=== PATIENT | male | born 1985 | race Caucasian/White ===

== ENCOUNTER 2018-09-13 06:55 | Emergency (ER) | payer OTHER ==
[~2018-09-13] VITALS: Ht 226.1 cm; Wt 91.2 kg
== END 2018-09-13 17:12 | disposition home or self-care (01) ==
LOC: ER 06:55
DX: K52.9 Noninfective gastroenteritis and colitis, unspecified (principal); R53.81 Other malaise

== ENCOUNTER 2019-03-11 10:47 | Emergency (ER) | payer OTHER ==
[~2019-03-11] VITALS: Ht 190.5 cm; Wt 104.3 kg
[2019-03-11] MEDS ORDERED: ATIVAN0.5 M1 (11:12)
[2019-03-11] MEDS ORDERED: REMERON15 M1 (11:13)
== END 2019-03-11 18:49 | disposition home or self-care (01) ==
LOC: ER 10:47
DX: K29.60 Other gastritis without bleeding (principal); F10.20 Alcohol dependence, uncomplicated

== ENCOUNTER 2019-03-29 11:15 | Emergency (ER) | payer OTHER ==
[~2019-03-29] VITALS: Ht 190.5 cm; Wt 100.2 kg
[~2019-03-29 11:15] MED LIST: ATIVAN0.5 M1; REMERON15 M1
== END 2019-03-29 14:58 | disposition home or self-care (01) ==
LOC: ER 11:15
DX: S42.255A Nondisplaced fracture of greater tuberosity of left humerus, initial encounter for closed fracture (principal); R60.0 Localized edema; V87.8XXA Person injured in other specified noncollision transport accidents involving motor vehicle (traffic), initial encounter; Y93.89 Activity, other specified; Y92.488 Other paved roadways as the place of occurrence of the external cause; Y99.8 Other external cause status